=== PATIENT | female | born 1995 | race African-American/Black ===

== ENCOUNTER 2017-06-18 22:23 | Observation (INO) | payer MEDICAID, OTHER ==
[~2017-06-18] VITALS: Ht 167.6 cm; Wt 80.7 kg
[~2017-06-18 22:23] MED LIST: HYDR-519 PO; IBUP-1636 PO
[2017-06-18] MEDS ORDERED: FAMOTIDINE 20MG/2ML VIAL IV STA (23:24)
[2017-06-18] MEDS ORDERED: SODIUM CHLORIDE 0.9% 1,000 ML IV ONE (23:24)
[2017-06-18] MEDS ORDERED: MORPHINE SULFATE 4 MG/ML CPJ (NOT FOR IM USE) IV STA (23:24)
[2017-06-18] MEDS ORDERED: ONDANSETRON HCL 4MG/2ML VIAL IV STA (23:24)
[2017-06-18 23:51] LABS: BASOPHILS % 0.4 % (0.0-2.0); EOSINOPHILS % 0.1 % (0.0-5.0); HEMATOCRIT. 35.6 % (36.0-48.0); HEMOGLOBIN. 11.6 g/dL (12.0-16.0); LYMPHOCYTES % 22.4 % (20.0-50.0); MEAN CORPUSCULAR HEMOGLOBIN 24.2 pg (28.0-32.0); MEAN CORPUSCULAR VOLUME 74.5 fL (81.0-99.0); MEAN PLATELET VOLUME 8.7 fl (7.4-10.4); NEUTROPHILS % 69.1 % (40.0-76.0); PLATELET 362 x1000/uL (130-400); RED BLOOD CELL COUNT 4.77 mill/uL (4.2-5.4); RED CELL DISTRIBUTION WIDTH 17.1 % (11.6-14.6)
[2017-06-18 23:56] LABS: INR 1.1
[2017-06-19 00:05] LABS: CHLORIDE 105 mEq/L (98-107)
[2017-06-19 00:13] LABS: CARBON DIOXIDE 22 mEq/L (21-32)
[2017-06-19 00:26] LABS: CLARITY URINE CLOUDY (CLEAR); COLOR URINE DARK YELLOW (YELLOW); GLUCOSE URINE NEGATIVE (NEGATIVE); KETONES URINE 1+ (NEGATIVE); LEUKOCYTE ESTERASE URINE NEGATIVE (NEGATIVE); NITRITE URINE NEGATIVE (NEGATIVE); OCCULT BLOOD URINE NEGATIVE (NEGATIVE); PROTEIN URINE NEGATIVE (NEGATIVE); SPECIFIC GRAVITY URINE 1.032 (1.005-1.030); UROBILINOGEN URINE 0.2 E.U./dL (0.2-1.0)
[2017-06-19 00:47] LABS: HCG SCREEN NEGATIVE
[2017-06-19] MEDS ORDERED: METRONIDAZOLE 500 MG PREMIX 100 ML IV SCH (02:30)
[2017-06-19] MEDS ORDERED: LEVOFLOXACIN 750MG PREMIX 150 ML IV SCH (02:30)
[2017-06-19] MEDS ORDERED: ONDANSETRON HCL 4MG/2ML VIAL IV ONE (05:30)
[2017-06-19] MEDS ORDERED: CLONIDINE 0.1MG TABLET PO PRN (11:15)
[2017-06-19] MEDS ORDERED: HYDROCODONE/ACETAMINOPHEN 5/325MG TABLET PO PRN (11:15)
[2017-06-19] MEDS ORDERED: ACETAMINOPHEN 325MG TABLET PO PRN (11:15)
[2017-06-19] MEDS ORDERED: ONDANSETRON HCL 4MG/2ML VIAL IV PRN (11:15)
[2017-06-19] MEDS ORDERED: IPRATROPIUM/ALBUTEROL 0.5-3(2.5)MG/3ML NEB INH PRN (11:15)
[2017-06-19] MEDS: ENOXAPARIN 40MG/0.4ML SYR SUBCUT SCH (12:00)
[2017-06-19 12:29] VITALS: BP 128/76
[2017-06-19] MEDS ORDERED: MORPHINE SULFATE 4 MG/ML CPJ (NOT FOR IM USE) IV NR (12:45)
[2017-06-19 13:18] VITALS: BP 136/79
[2017-06-19 13:37] LABS: *AMPHETAMINES SCREEN URINE NEGATIVE (NEGATIVE); *BARBITURATES SCREEN URINE NEGATIVE (NEGATIVE); *BENZODIAZEPINES SCREEN URINE NEGATIVE (NEGATIVE); *COCAINE SCREEN URINE NEGATIVE (NEGATIVE); METHADONE URINE SCREEN NEGATIVE (NEGATIVE); OPIATES URINE SCREEN NEGATIVE (NEGATIVE); PHENCYCLIDINE URINE SCREEN NEGATIVE (NEGATIVE)
[2017-06-19 13:42] LABS: CANNABINOID URINE SCREEN PRESUMTIVE POSITIVE (NEGATIVE)
[2017-06-19] MEDS: PANTOPRAZOLE SODIUM 40 MG/VIAL IV SCH (14:32)
[2017-06-19] MEDS: DEXT 5%/0.45% NACL 1000ML 1,000 ML IV SCH (14:33)
[2017-06-19 17:29] VITALS: BP 118/73
[2017-06-19] MEDS: ONDANSETRON HCL 4MG/2ML VIAL IV PRN (19:27)
[2017-06-19 20:00] VITALS: BP 126/67
[2017-06-19] MEDS: METRONIDAZOLE 500MG TABLET PO SCH ×2 (21:17→21:23)
[2017-06-19] MEDS: MORPHINE SULFATE 4 MG/ML CPJ (NOT FOR IM USE) IV PRN (22:31)
[2017-06-20] VITALS: BP 116/64
[2017-06-20] MEDS: METRONIDAZOLE 500 MG PREMIX 100 ML IV SCH ×3 (00:35→13:42)
[2017-06-20 04:00] VITALS: BP 107/80
[2017-06-20] MEDS: DEXT 5%/0.45% NACL 1000ML 1,000 ML IV SCH (05:19)
[2017-06-20 06:12] LABS: CARBON DIOXIDE 23 mEq/L (21-32); CHLORIDE 107 mEq/L (98-107); HDL CHOLESTEROL 27 mg/dL (40-59); LDL CHOLESTEROL 115 mg/dL (5-100); T4 FREE 1.43 ng/dL (0.76-1.46)
[2017-06-20 06:16] LABS: BASOPHILS % 0.2 % (0.0-2.0); EOSINOPHILS % 0.1 % (0.0-5.0); HEMATOCRIT. 34.1 % (36.0-48.0); HEMOGLOBIN. 11.2 g/dL (12.0-16.0); LYMPHOCYTES % 21.1 % (20.0-50.0); MEAN CORPUSCULAR HEMOGLOBIN 24.4 pg (28.0-32.0); MEAN CORPUSCULAR VOLUME 74.7 fL (81.0-99.0); MONOCYTES % 10.9 % (2.0-8.0); NEUTROPHILS % 67.7 % (40.0-76.0); PLATELET 308 x1000/uL (130-400); RED BLOOD CELL COUNT 4.57 mill/uL (4.2-5.4); RED CELL DISTRIBUTION WIDTH 17.2 % (11.6-14.6)
[2017-06-20 08:00] VITALS: BP 137/65
[2017-06-20] MEDS: ENOXAPARIN 40MG/0.4ML SYR SUBCUT SCH (08:30)
[2017-06-20] MEDS: PANTOPRAZOLE SODIUM 40 MG/VIAL IV SCH (08:30)
[2017-06-20] MEDS: MORPHINE SULFATE 4 MG/ML CPJ (NOT FOR IM USE) IV PRN (10:53)
[2017-06-20] MEDS: ONDANSETRON HCL 4MG/2ML VIAL IV PRN (10:54)
[2017-06-20 12:00] VITALS: BP 108/58
[2017-06-20 14:35] VITALS: BP 108/58
== END 2017-06-20 15:35 | disposition home or self-care (01) ==
LOC: ER 23:11 → INTOOBSV 06-19 02:39 → 8WST 06-19 02:39 → ENRESERV 06-19 09:48
PROVIDERS: ADMIT Internal Medicine; ATTEND Internal Medicine
DX: R10.9 Unspecified abdominal pain (principal); F41.9 Anxiety disorder, unspecified
CPT/HCPCS: 36415; 74176; 76700; 80053; 80061; 80305; 81001; 81025; 83605; 83690; 84439; 84443; 84703; 85025; 85610; 87040; 87086; 87493; 96361; 96365; 96366; 96367; 96372; 96375; 96376; 99285; C9113; G0378; J1650; J1956; J2270; J2405; J3490; J7030

== ENCOUNTER 2017-06-30 15:14 | Inpatient (IN) | payer OTHER ==
[~2017-06-30] VITALS: Ht 167.6 cm; Wt 72.6 kg
[2017-06-30] MEDS ORDERED: MORPHINE SULFATE 4 MG/ML CPJ (NOT FOR IM USE) IV ONE (20:15)
[2017-06-30] MEDS ORDERED: ONDANSETRON HCL 4MG/2ML VIAL IV ONE (20:15)
[2017-06-30] MEDS ORDERED: SODIUM CHLORIDE 0.9% 1,000 ML IV ONE (20:15)
[2017-06-30 20:30] LABS: CLARITY URINE CLEAR (CLEAR); COLOR URINE YELLOW (YELLOW); GLUCOSE URINE NEGATIVE (NEGATIVE); KETONES URINE NEGATIVE (NEGATIVE); LEUKOCYTE ESTERASE URINE NEGATIVE (NEGATIVE); NITRITE URINE NEGATIVE (NEGATIVE); OCCULT BLOOD URINE NEGATIVE (NEGATIVE); PROTEIN URINE TRACE (NEGATIVE); SPECIFIC GRAVITY URINE 1.021 (1.005-1.030); UROBILINOGEN URINE 0.2 E.U./dL (0.2-1.0)
[2017-06-30] MEDS ORDERED: LEVOFLOXACIN 500MG PREMIX 100 ML IV ONE (20:45)
[2017-06-30] MEDS ORDERED: METRONIDAZOLE 500 MG PREMIX 100 ML IV ONE (20:45)
[2017-06-30 20:46] LABS: BASOPHILS % 0.4 % (0.0-2.0); EOSINOPHILS % 0.5 % (0.0-5.0); HEMATOCRIT. 38.4 % (36.0-48.0); HEMOGLOBIN. 12.5 g/dL (12.0-16.0); LYMPHOCYTES % 43.1 % (20.0-50.0); MEAN CORPUSCULAR HEMOGLOBIN 23.8 pg (28.0-32.0); MEAN PLATELET VOLUME 8.4 fl (7.4-10.4); MONOCYTES % 11.9 % (2.0-8.0); NEUTROPHILS % 44.1 % (40.0-76.0); PLATELET 432 x1000/uL (130-400); RED BLOOD CELL COUNT 5.27 mill/uL (4.2-5.4); RED CELL DISTRIBUTION WIDTH 16.2 % (11.6-14.6)
[2017-06-30 21:00] LABS: CARBON DIOXIDE 26 mEq/L (21-32); CHLORIDE 104 mEq/L (98-107)
[2017-06-30 21:07] LABS: HCG SCREEN NEGATIVE
[2017-07-01 06:00] VITALS: BP 113/64
[2017-07-01] MEDS ORDERED: IOHEXOL-300 100 ML BOTTLE ONE (06:00)
[2017-07-01] MEDS ORDERED: SODIUM CHLORIDE 0.9% 10ML VIAL ONE (06:00)
[2017-07-01 08:00] VITALS: BP 114/68
[2017-07-01] MEDS ORDERED: MORPHINE SULFATE 4 MG/ML CPJ (NOT FOR IM USE) IV PRN (08:00)
[2017-07-01] MEDS ORDERED: DEXT 5%/0.45% NACL KCL 20MEQ/L 1,000 ML IV SCH (09:00)
[2017-07-01 12:00] VITALS: BP 122/69
[2017-07-01] MEDS ORDERED: VANCOMYCIN HCL 1 GM/VIAL PO SCH (12:00)
[2017-07-01] MEDS: VANCOMYCIN HCL 1000 MG/20 ML ORAL PO SCH ×3 (12:00→18:00)
[2017-07-01 15:54] VITALS: BP_SYST 110; BP_SYST 122; BP_DIAS 66; BP_DIAS 69
[2017-07-01 16:00] VITALS: BP 115/64
[2017-07-01 20:00] VITALS: BP 110/66
== END 2017-07-02 00:15 | disposition short-term general hospital (02) | DRG 248 ==
LOC: ER 15:14 → CANBEDREQ 07-01 01:38 → 6EST 07-01 03:05 → EDBEDREQ 07-01 03:27 → ENRESERV 07-01 03:57
PROVIDERS: ADMIT Internal Medicine; ATTEND Internal Medicine
DX: A04.71 Enterocolitis due to Clostridium difficile, recurrent (principal); F12.90 Cannabis use, unspecified, uncomplicated
CPT/HCPCS: 36415; 71010; 74177; 80053; 81001; 84703; 85025; 93005; 96361; 96365; 96366; 96368; 96375; 99285; A4216; J1956; J2270; J2405; J3370; J3490; J7030; Q9967

== ENCOUNTER 2017-12-01 09:23 | Emergency (ER) | payer OTHER ==
[~2017-12-01] VITALS: Ht 162.6 cm; Wt 84.0 kg
[2017-12-01] MEDS ORDERED: SODIUM CHLORIDE 0.9% 1,000 ML IV ONE (11:45)
[2017-12-01] MEDS ORDERED: ONDANSETRON HCL 4MG/2ML VIAL IV ONE (11:45)
[2017-12-01] MEDS ORDERED: METOCLOPRAMIDE HCL 10MG/2ML VIAL IV ONE (12:00)
[2017-12-01 12:15] LABS: BASOPHILS % 0.3 % (0.0-2.0); EOSINOPHILS % 0.6 % (0.0-5.0); HEMATOCRIT. 34.7 % (36.0-48.0); HEMOGLOBIN. 11.6 g/dL (12.0-16.0); LYMPHOCYTES % 31.6 % (20.0-50.0); MEAN CORPUSCULAR HEMOGLOBIN 26.4 pg (28.0-32.0); MEAN CORPUSCULAR VOLUME 78.9 fL (81.0-99.0); MEAN PLATELET VOLUME 8.4 fl (7.4-10.4); NEUTROPHILS % 61.5 % (40.0-76.0); PLATELET 347 x1000/uL (130-400); RED CELL DISTRIBUTION WIDTH 15.8 % (11.6-14.6)
[2017-12-01 12:20] LABS: CHLORIDE 103 mEq/L (98-107)
[2017-12-01 12:21] LABS: CLARITY URINE CLOUDY (CLEAR); COLOR URINE YELLOW (YELLOW); KETONES URINE 3+ (NEGATIVE); LEUKOCYTE ESTERASE URINE TRACE (NEGATIVE); NITRITE URINE NEGATIVE (NEGATIVE); OCCULT BLOOD URINE NEGATIVE (NEGATIVE); PH URINE 8.5 (4.5-8.0); PROTEIN URINE 1+ (NEGATIVE)
[2017-12-01 12:23] LABS: INR 1.1; PROTHROMBIN TIME 11.5 sec (9.4-11.6)
[2017-12-01 12:30] VITALS: BP 122/78
== END 2017-12-01 14:22 | disposition home or self-care (01) ==
LOC: ER 09:37
DX: O26.891 Other specified pregnancy related conditions, first trimester (principal); O23.41 Unspecified infection of urinary tract in pregnancy, first trimester; K92.0 Hematemesis; O99.341 Other mental disorders complicating pregnancy, first trimester; F41.9 Anxiety disorder, unspecified; Z3A.01 Less than 8 weeks gestation of pregnancy; Z88.6 Allergy status to analgesic agent
CPT/HCPCS: 36415; 76801; 76817; 80053; 81003; 83690; 84702; 85025; 85610; 87077; 87086; 96361; 96374; 99285; J2405; J7030; Z7610; J2765

== ENCOUNTER 2017-12-07 20:50 | Emergency (ER) | payer OTHER ==
[~2017-12-07] VITALS: Ht 165.1 cm; Wt 83.0 kg
[2017-12-07] MEDS ORDERED: ONDANSETRON 4MG ODT PO STA (22:57)
[2017-12-07] MEDS ORDERED: ACETAMINOPHEN 325MG TABLET PO STA (22:57)
[2017-12-08 05:27] VITALS: BP 124/68
== END 2017-12-08 04:20 | disposition home or self-care (01) ==
LOC: ER 20:50
DX: O21.0 Mild hyperemesis gravidarum (principal); O26.91 Pregnancy related conditions, unspecified, first trimester; Z3A.09 9 weeks gestation of pregnancy
CPT/HCPCS: 87804; 99284; Q0162

== ENCOUNTER 2017-12-17 15:58 | Emergency (ER) | payer OTHER ==
[~2017-12-17] VITALS: Ht 175.3 cm; Wt 89.0 kg
[2017-12-17 17:51] LABS: BASOPHILS % 0.4 % (0.0-2.0); EOSINOPHILS % 0.4 % (0.0-5.0); HEMATOCRIT. 38.5 % (36.0-48.0); HEMOGLOBIN. 13.5 g/dL (12.0-16.0); LYMPHOCYTES % 30.6 % (20.0-50.0); MEAN CORPUSCULAR VOLUME 77.1 fL (81.0-99.0); MEAN PLATELET VOLUME 8.9 fl (7.4-10.4); MONOCYTES % 9.8 % (2.0-8.0); NEUTROPHILS % 58.8 % (40.0-76.0); PLATELET 393 x1000/uL (130-400); RED BLOOD CELL COUNT 4.99 mill/uL (4.2-5.4); RED CELL DISTRIBUTION WIDTH 15.9 % (11.6-14.6)
[2017-12-17 17:52] LABS: CHLORIDE 100 mEq/L (98-107)
[2017-12-17 17:55] LABS: INR 1.2; PROTHROMBIN TIME 12.4 sec (9.4-11.6)
[2017-12-17] MEDS ORDERED: SODIUM CHLORIDE 0.9% 1,000 ML IV ONE (18:12)
[2017-12-17] MEDS ORDERED: FAMOTIDINE 20MG/2ML VIAL IV ONE (18:15)
[2017-12-17] MEDS ORDERED: ONDANSETRON HCL 4MG/2ML VIAL IV ONE ×2 (18:15→22:45)
[2017-12-17 18:16] LABS: B-HCG QUANTITATIVE 94077 mIU/mL (<3)
[2017-12-17] MEDS ORDERED: POTASSIUM CHLORIDE 20MEQ TABLET SR PO ONE (19:15)
[2017-12-17 23:03] LABS: CLARITY URINE CLOUDY (CLEAR); COLOR URINE DARK YELLOW (YELLOW); KETONES URINE 4+ (NEGATIVE); LEUKOCYTE ESTERASE URINE 1+ (NEGATIVE); NITRITE URINE NEGATIVE (NEGATIVE); OCCULT BLOOD URINE NEGATIVE (NEGATIVE); PH URINE 5.5 (4.5-8.0); PROTEIN URINE 1+ (NEGATIVE); SPECIFIC GRAVITY URINE 1.031 (1.005-1.030)
[2017-12-17 23:30] VITALS: BP 112/62
== END 2017-12-18 02:34 | disposition home or self-care (01) ==
LOC: ER 15:58
DX: O21.1 Hyperemesis gravidarum with metabolic disturbance (principal); O23.42 Unspecified infection of urinary tract in pregnancy, second trimester; O26.892 Other specified pregnancy related conditions, second trimester; E87.6 Hypokalemia; E86.0 Dehydration; Z3A.10 10 weeks gestation of pregnancy; Z88.6 Allergy status to analgesic agent
CPT/HCPCS: 36415; 76801; 80053; 81003; 81025; 83880; 84702; 85025; 85610; 85730; 86850; 86870; 86900; 86901; 96361; 96374; 96375; 99285; J2405; J3490; J7030

== ENCOUNTER 2017-12-30 10:36 | Emergency (ER) | payer OTHER ==
[~2017-12-30] VITALS: Ht 167.6 cm; Wt 82.0 kg
[2017-12-30 11:23] LABS: BASOPHILS % 0.7 % (0.0-2.0); EOSINOPHILS % 0.4 % (0.0-5.0); HEMATOCRIT. 38.2 % (36.0-48.0); HEMOGLOBIN. 13.1 g/dL (12.0-16.0); LYMPHOCYTES % 27.3 % (20.0-50.0); MEAN CORPUSCULAR HEMOGLOBIN 26.8 pg (28.0-32.0); MEAN PLATELET VOLUME 8.8 fl (7.4-10.4); MONOCYTES % 7.3 % (2.0-8.0); NEUTROPHILS % 64.3 % (40.0-76.0); PLATELET 341 x1000/uL (130-400); RED CELL DISTRIBUTION WIDTH 15.8 % (11.6-14.6)
[2017-12-30 11:29] LABS: CHLORIDE 95 mEq/L (98-107)
[2017-12-30 11:32] LABS: INR 1.1; PROTHROMBIN TIME 11.7 sec (9.4-11.6)
[2017-12-30 11:54] LABS: B-HCG QUANTITATIVE 77649 mIU/mL (<3)
[2017-12-30] MEDS ORDERED: SODIUM CHLORIDE 0.9% 1,000 ML IV ONE ×2 (12:13→12:15)
[2017-12-30] MEDS ORDERED: ONDANSETRON HCL 4MG/2ML VIAL IV ONE (12:15)
[2017-12-30] MEDS ORDERED: FAMOTIDINE 20MG/2ML VIAL IV ONE (12:15)
[2017-12-30 12:54] LABS: CHLORIDE 99 mEq/L (98-107)
[2017-12-30] MEDS ORDERED: METOCLOPRAMIDE HCL 10MG/2ML VIAL IV ONE (13:00)
[2017-12-30] MEDS ORDERED: POTASSIUM CHLORIDE 20MEQ TABLET SR PO ONE ×2 (13:00→15:30)
[2017-12-30 15:36] VITALS: BP 100/61
== END 2017-12-30 15:40 | disposition home or self-care (01) ==
LOC: ER 10:55
DX: O26.891 Other specified pregnancy related conditions, first trimester (principal); Z3A.11 11 weeks gestation of pregnancy; O23.41 Unspecified infection of urinary tract in pregnancy, first trimester; O99.281 Endocrine, nutritional and metabolic diseases complicating pregnancy, first trimester; O21.0 Mild hyperemesis gravidarum; E86.0 Dehydration; Z88.8 Allergy status to other drugs, medicaments and biological substances
CPT/HCPCS: 36415; 76801; 76817; 80053; 83605; 83690; 84702; 85025; 85610; 87040; 96361; 96374; 96375; 99285; J2405; J2765; J3490; J7030

== ENCOUNTER 2018-05-18 09:42 | Emergency (ER) | payer OTHER ==
[~2018-05-18] VITALS: Ht 167.6 cm; Wt 73.0 kg
[2018-05-18] MEDS ORDERED: MORPHINE SULFATE 4 MG/ML CPJ (NOT FOR IM USE) IV STA (11:08)
[2018-05-18] MEDS ORDERED: ONDANSETRON HCL 4MG/2ML INJ IV STA (11:08)
[2018-05-18] MEDS ORDERED: SODIUM CHLORIDE 0.9% 1,000 ML IV ONE (11:08)
[2018-05-18] MEDS ORDERED: ACETAMINOPHEN 325MG TABLET PO ONE (12:30)
[2018-05-18 12:47] LABS: BASOPHILS % 0.2 % (0.0-2.0); EOSINOPHILS % 0.1 % (0.0-5.0); HEMATOCRIT. 31.7 % (36.0-48.0); HEMOGLOBIN. 10.7 g/dL (12.0-16.0); LYMPHOCYTES % 16.5 % (20.0-50.0); MEAN CORPUSCULAR HEMOGLOBIN 29.2 pg (28.0-32.0); MEAN CORPUSCULAR VOLUME 86.9 fL (81.0-99.0); MEAN PLATELET VOLUME 9.8 fl (7.4-10.4); MONOCYTES % 6.4 % (2.0-8.0); NEUTROPHILS % 76.8 % (40.0-76.0); PLATELET 257 x1000/uL (130-400); RED BLOOD CELL COUNT 3.65 mill/uL (4.2-5.4); RED CELL DISTRIBUTION WIDTH 14.3 % (11.6-14.6)
[2018-05-18 12:49] LABS: CHLORIDE 108 mEq/L (98-107)
[2018-05-18 12:51] LABS: PROTHROMBIN TIME 9.7 sec (9.1-11.1)
[2018-05-18] MEDS ORDERED: MORPHINE SULFATE 4 MG/ML CPJ (NOT FOR IM USE) IV ONE ×2 (15:15→16:30)
[2018-05-18] MEDS ORDERED: LIDOCAINE 1%/EPI 1:100,000 10 ML VIAL IJ ONE (15:30)
[2018-05-18] MEDS ORDERED: ONDANSETRON HCL 4MG/2ML INJ IV ONE (15:30)
[2018-05-18] MEDS ORDERED: LIDOCAINE HCL/EPINEPHRINE 1%-EPI 1:100,000 50 ML VIAL INFIL ONE (15:45)
[2018-05-18] MEDS ORDERED: AMPICILLIN 1000MG in SODIUM CHLORIDE 0.9% 50ML IV NR (16:30)
[2018-05-18 18:19] VITALS: BP 138/86
== END 2018-05-18 18:59 | disposition home or self-care (01) ==
LOC: ER 11:09 → CANBEDREQ 16:54 → ER 18:59
DX: O26.893 Other specified pregnancy related conditions, third trimester (principal); K04.7 Periapical abscess without sinus; R22.0 Localized swelling, mass and lump, head; R51 Headache; R07.9 Chest pain, unspecified; Z3A.00 Weeks of gestation of pregnancy not specified; Z88.6 Allergy status to analgesic agent
CPT/HCPCS: 36415; 41800; 70540; 80053; 83605; 85025; 85610; 87040; 93005; 96365; 96375; 96376; 99285; J0290; J2270; J2405; J3490; J7030; Z7610

== ENCOUNTER 2018-12-01 14:36 | Inpatient (IN) | payer OTHER ==
[~2018-12-01] VITALS: Ht 170.2 cm; Wt 74.8 kg
[2018-12-01] MEDS ORDERED: SODIUM CHLORIDE 0.9% 1,000 ML IV ONE (23:05)
[2018-12-01] MEDS ORDERED: ONDANSETRON HCL 4MG/2ML INJ IV ONE (23:15)
[2018-12-01 23:27] LABS: BASOPHILS % 0.6 % (0.0-2.0); EOSINOPHILS % 0.1 % (0.0-5.0); HEMATOCRIT. 38.8 % (36.0-48.0); MEAN CORPUSCULAR HEMOGLOBIN 27.7 pg (28.0-32.0); MEAN CORPUSCULAR VOLUME 82.7 fL (81.0-99.0); MONOCYTES % 7.4 % (2.0-8.0); NEUTROPHILS % 69.9 % (40.0-76.0); PLATELET 353 x1000/uL (130-400); RED BLOOD CELL COUNT 4.69 mill/uL (4.2-5.4); RED CELL DISTRIBUTION WIDTH 14.2 % (11.6-14.6)
[2018-12-01 23:32] LABS: INR 1.1; PROTHROMBIN TIME 10.7 sec (9.1-11.1)
[2018-12-01 23:34] LABS: CHLORIDE 104 mEq/L (98-107)
[2018-12-01 23:58] LABS: B-HCG QUANTITATIVE 56489 mIU/mL (<3)
[2018-12-02 00:15] LABS: CLARITY URINE CLOUDY (CLEAR); COLOR URINE YELLOW (YELLOW); KETONES URINE 1+ (NEGATIVE); LEUKOCYTE ESTERASE URINE NEGATIVE (NEGATIVE); NITRITE URINE NEGATIVE (NEGATIVE); OCCULT BLOOD URINE NEGATIVE (NEGATIVE); PH URINE 6.5 (4.5-8.0); PROTEIN URINE 1+ (NEGATIVE); SPECIFIC GRAVITY URINE 1.028 (1.005-1.030)
[2018-12-02] MEDS ORDERED: SODIUM CHLORIDE 0.9% 1,000 ML IV ONE (00:51)
[2018-12-02 01:00] VITALS: BP 129/87
[2018-12-02] MEDS ORDERED: ONDANSETRON HCL 4MG/2ML INJ IV ONE (01:00)
[2018-12-02] MEDS ORDERED: DIPHENHYDRAMINE 50MG/ML VIAL IV ONE (04:15)
[2018-12-02] MEDS ORDERED: ACETAMINOPHEN 325MG TABLET PO PRN ×2 (05:00→12:15)
[2018-12-02 09:25] VITALS: BP 122/70
[2018-12-02 09:48] VITALS: BP 122/70
[2018-12-02] MEDS ORDERED: IPRATROPIUM/ALBUTEROL 0.5-3(2.5)MG/3ML NEB INH PRN (12:15)
[2018-12-02] MEDS: DEXT 5%/0.45% NACL 1000ML 1,000 ML IV SCH (13:28)
[2018-12-02 15:07] LABS: *AMPHETAMINES SCREEN URINE NEGATIVE (NEGATIVE); *BARBITURATES SCREEN URINE NEGATIVE (NEGATIVE)
[2018-12-02 15:08] LABS: *BENZODIAZEPINES SCREEN URINE NEGATIVE (NEGATIVE); *COCAINE SCREEN URINE NEGATIVE (NEGATIVE); METHADONE URINE SCREEN NEGATIVE (NEGATIVE); OPIATES URINE SCREEN NEGATIVE (NEGATIVE); PHENCYCLIDINE URINE SCREEN NEGATIVE (NEGATIVE)
[2018-12-02 15:14] LABS: CANNABINOID URINE SCREEN PRESUMTIVE POSITIVE (NEGATIVE)
[2018-12-02 15:17] LABS: CHLORIDE 106 mEq/L (98-107)
[2018-12-02 15:23] LABS: HEMATOCRIT 33.6 % (36.0-48.0); HEMOGLOBIN 11.4 g/dL (12.0-16.0); MEAN CORPUSCULAR HEMOGLOBIN 28.4 pg (28.0-32.0); MEAN CORPUSCULAR VOLUME 83.5 fL (81.0-99.0); PLATELET 277 x1000/uL (130-400); RED BLOOD CELL COUNT 4.02 mill/uL (4.2-5.4); RED CELL DISTRIBUTION WIDTH 14.2 % (11.6-14.6)
[2018-12-02] MEDS ORDERED: ONDANSETRON HCL 4MG/2ML INJ IV NR (15:30)
[2018-12-02 16:00] VITALS: BP 129/87
[2018-12-02] MEDS ORDERED: POTASSIUM CHLORIDE 20MEQ TABLET SR PO NR (16:15)
[2018-12-02] MEDS ORDERED: ONDANSETRON HCL 4MG/2ML INJ IV PRN (16:15)
[2018-12-02] MEDS: CEPHALEXIN 250MG CAPSULE PO SCH (18:22)
[2018-12-02 20:00] VITALS: BP 121/73
[2018-12-02] MEDS ORDERED: ONDANSETRON HCL 4MG/2ML INJ IV SCH (20:00)
[2018-12-02] MEDS: FAMOTIDINE 20MG/2ML VIAL IV SCH (21:06)
[2018-12-02] MEDS: ONDANSETRON HCL 4MG/2ML INJ IV PRN (21:07)
[2018-12-03] VITALS: BP 103/55
[2018-12-03 04:00] VITALS: BP 115/66
[2018-12-03] MEDS: CEPHALEXIN 250MG CAPSULE PO SCH ×4 (06:00→17:43)
[2018-12-03 07:21] LABS: CHLORIDE 107 mEq/L (98-107)
[2018-12-03 07:29] LABS: LDL CHOLESTEROL 97 mg/dL (5-100)
[2018-12-03 07:30] LABS: BASOPHILS % 0.4 % (0.0-2.0); EOSINOPHILS % 0.8 % (0.0-5.0); HEMATOCRIT. 33.3 % (36.0-48.0); HEMOGLOBIN. 11.3 g/dL (12.0-16.0); LYMPHOCYTES % 39.6 % (20.0-50.0); MEAN CORPUSCULAR HEMOGLOBIN 28.3 pg (28.0-32.0); MEAN CORPUSCULAR VOLUME 83.4 fL (81.0-99.0); MEAN PLATELET VOLUME 9.5 fl (7.4-10.4); MONOCYTES % 8.9 % (2.0-8.0); NEUTROPHILS % 50.3 % (40.0-76.0); PLATELET 267 x1000/uL (130-400); T4 FREE 1.69 ng/dL (0.76-1.46)
[2018-12-03 07:31] LABS: HDL CHOLESTEROL 34 mg/dL (40-59)
[2018-12-03] MEDS: DEXT 5%/0.45% NACL 1000ML 1,000 ML IV SCH (07:39)
[2018-12-03] MEDS: FAMOTIDINE 20MG/2ML VIAL IV SCH ×3 (10:08→22:55)
[2018-12-03] MEDS: POTASSIUM CHLORIDE 20MEQ TABLET SR PO SCH ×2 (11:30→13:04)
[2018-12-03] MEDS: ONDANSETRON HCL 4MG/2ML INJ IV PRN ×2 (11:41→17:43)
[2018-12-03 12:00] VITALS: BP 120/76
[2018-12-03 16:00] VITALS: BP 126/75
[2018-12-03 20:00] VITALS: BP 119/70
[2018-12-03] MEDS: DIPHENHYDRAMINE 50MG/ML VIAL IV NR (23:02)
[2018-12-04] MEDS: CEPHALEXIN 250MG CAPSULE PO SCH
[2018-12-04] MEDS: DIPHENHYDRAMINE 50MG/ML VIAL IV NR (00:40)
== END 2018-12-04 | disposition left against medical advice (07) | DRG 566 ==
LOC: ER 14:36 → 6EST 12-02 04:39 → EDBEDREQ 12-02 04:46 → EDBEDREQTM 12-02 04:46 → ENRESERV 12-02 07:55
PROVIDERS: ADMIT Internal Medicine; ATTEND Internal Medicine
PROC: 3E0234Z Introduction of Serum, Toxoid and Vaccine into Muscle, Percutaneous Approach (ICD-10-PCS; principal; 2018-12-02)
DX: O21.1 Hyperemesis gravidarum with metabolic disturbance (principal); O23.41 Unspecified infection of urinary tract in pregnancy, first trimester; Z3A.01 Less than 8 weeks gestation of pregnancy; Z88.6 Allergy status to analgesic agent; Z82.49 Family history of ischemic heart disease and other diseases of the circulatory system
CPT/HCPCS: 36415; 76801; 80048; 80061; 80305; 84439; 84443; 84702; 85027; 86850; 86900; 90384; 93970; 96361; 96374; 99285; J1200; J2405; J3490; J7030

== ENCOUNTER 2020-06-05 08:11 | Emergency (ER) | payer OTHER ==
[~2020-06-05] VITALS: Ht 170.2 cm; Wt 84.0 kg
[2020-06-05] MEDS ORDERED: KETOROLAC 60MG/2ML VIAL IM STA (08:45)
[2020-06-05 09:01] LABS: CLARITY URINE CLOUDY (CLEAR); COLOR URINE YELLOW (YELLOW); KETONES URINE NEGATIVE (NEGATIVE); LEUKOCYTE ESTERASE URINE TRACE (NEGATIVE); NITRITE URINE NEGATIVE (NEGATIVE); OCCULT BLOOD URINE NEGATIVE (NEGATIVE); PROTEIN URINE NEGATIVE (NEGATIVE); SPECIFIC GRAVITY URINE 1.029 (1.005-1.030); UROBILINOGEN URINE 0.2 E.U./dL (0.2-1.0)
[2020-06-05 09:20] VITALS: BP 128/69
== END 2020-06-05 10:21 | disposition home or self-care (01) ==
LOC: ER 08:11
DX: M54.6 Pain in thoracic spine (principal); N39.0 Urinary tract infection, site not specified; Z88.6 Allergy status to analgesic agent
CPT/HCPCS: 71045; 81003; 81025; 96372; 99284; J1885

== ENCOUNTER 2021-05-02 09:41 | Emergency (ER) | payer OTHER ==
[~2021-05-02] VITALS: Ht 170.2 cm; Wt 82.0 kg
[2021-05-02 12:11] LABS: CLARITY URINE CLEAR (CLEAR); COLOR URINE YELLOW (YELLOW); KETONES URINE NEGATIVE (NEGATIVE); LEUKOCYTE ESTERASE URINE NEGATIVE (NEGATIVE); NITRITE URINE NEGATIVE (NEGATIVE); OCCULT BLOOD URINE NEGATIVE (NEGATIVE); PH URINE 5.5 (4.5-8.0); PROTEIN URINE NEGATIVE (NEGATIVE); SPECIFIC GRAVITY URINE 1.033 (1.005-1.030)
[2021-05-02] MEDS ORDERED: LIDOCAINE HCL 1% 20ML VIAL (Pyxis) INJ INFIL ONE (12:30)
[2021-05-02] MEDS ORDERED: CEFTRIAXONE SODIUM 500 MG/VIAL IM ONE (12:30)
[2021-05-02] MEDS ORDERED: METR-167 PO (13:18)
[2021-05-02] MEDS ORDERED: DOXY100T28 MT (13:18)
[2021-05-02] MEDS ORDERED: ACET-2708 PO (13:18)
[2021-05-02 13:40] VITALS: BP 122/55
[2021-05-04 04:08] LABS: NEISSERIA GONORRHOEAE NAA Negative (Negative)
== END 2021-05-02 13:40 | disposition home or self-care (01) ==
LOC: ER 09:41
DX: N76.0 Acute vaginitis (principal)
CPT/HCPCS: 81003; 81025; 87210; 87491; 87591; 96372; 99283; J0696; J3490

== ENCOUNTER 2021-11-03 07:27 | Emergency (ER) | payer OTHER ==
[~2021-11-03] VITALS: Ht 167.6 cm; Wt 86.0 kg
[~2021-11-03 07:27] MED LIST changes: +ACET-2708 PO; +DOXY100T28 MT; -HYDR-519 PO; -IBUP-1636 PO; +METR-167 PO
[2021-11-03 07:45] VITALS: BP 114/50
[2021-11-03] MEDS ORDERED: KETOROLAC 60MG/2ML VIAL IM ONE (07:45)
[2021-11-03] MEDS ORDERED: IBUP-2030 MT (08:38)
== END 2021-11-03 09:20 | disposition home or self-care (01) ==
LOC: ER 07:27
DX: S40.022A Contusion of left upper arm, initial encounter (principal); S09.90XA Unspecified injury of head, initial encounter; Z88.5 Allergy status to narcotic agent; Y04.0XXA Assault by unarmed brawl or fight, initial encounter; Y93.89 Activity, other specified; Y92.89 Other specified places as the place of occurrence of the external cause; Y99.8 Other external cause status
CPT/HCPCS: 70450; 72125; 73090; 81025; 96372; 99284; J1885

== ENCOUNTER 2022-04-09 10:20 | Emergency (ER) | payer OTHER ==
[~2022-04-09] VITALS: Ht 167.6 cm; Wt 94.0 kg
[~2022-04-09 10:20] MED LIST changes: +IBUP-2030 MT
[2022-04-09 10:26] VITALS: BP 120/71
[2022-04-09] MEDS ORDERED: ACETAMINOPHEN 325MG TABLET PO STA (11:42)
[2022-04-09] MEDS ORDERED: SODIUM CHLORIDE 0.9% 1,000 ML IV ONE (11:45)
[2022-04-09] MEDS ORDERED: ALBUTEROL 6.7GM HFA INHALER ORI ONE (11:45)
[2022-04-09] MEDS ORDERED: MAGNESIUM/ALUMINUM HYDROXIDE/SIMETHICONE 30ML UDC PO ONE (12:15)
[2022-04-09] MEDS ORDERED: PANTOPRAZOLE SODIUM 40 MG/VIAL IV ONE (12:15)
[2022-04-09 12:22] LABS: BASOPHILS % 0.8 % (0.0-2.0); EOSINOPHILS % 1.6 % (0.0-5.0); HEMATOCRIT. 39.4 % (36.0-48.0); HEMOGLOBIN. 13.1 g/dL (12.0-16.0); LYMPHOCYTES % 37.7 % (20.0-50.0); MEAN CORPUSCULAR HEMOGLOBIN 28.1 pg (28.0-32.0); MEAN CORPUSCULAR VOLUME 84.3 fL (81.0-99.0); MEAN PLATELET VOLUME 9.1 fl (7.4-10.4); MONOCYTES % 5.6 % (2.0-8.0); NEUTROPHILS % 54.3 % (40.0-76.0); PLATELET 276 x1000/uL (130-400); RED BLOOD CELL COUNT 4.67 mill/uL (4.2-5.4); RED CELL DISTRIBUTION WIDTH 14.7 % (11.6-14.6)
[2022-04-09 12:32] LABS: CHLORIDE 108 mEq/L (98-107)
[2022-04-09 12:37] LABS: HCG SCREEN NEGATIVE
[2022-04-09 12:38] LABS: ETHANOL BLOOD < 10 mg/dL
[2022-04-09 12:59] LABS: CLARITY URINE CLOUDY (CLEAR); COLOR URINE YELLOW (YELLOW); KETONES URINE NEGATIVE (NEGATIVE); LEUKOCYTE ESTERASE URINE 1+ (NEGATIVE); NITRITE URINE NEGATIVE (NEGATIVE); OCCULT BLOOD URINE TRACE (NEGATIVE); PH URINE 5.5 (4.5-8.0); PROTEIN URINE NEGATIVE (NEGATIVE); UROBILINOGEN URINE 0.2 E.U./dL (0.2-1.0)
[2022-04-09] MEDS ORDERED: MAG355OR21 MT (14:11)
[2022-04-09] MEDS ORDERED: ONDA4TAB50 MT (14:11)
[2022-04-09] MEDS ORDERED: CEPH500C2 MT (14:11)
[2022-04-09 14:14] LABS: *AMPHETAMINES SCREEN URINE NEGATIVE (NEGATIVE); *BARBITURATES SCREEN URINE NEGATIVE (NEGATIVE); *BENZODIAZEPINES SCREEN URINE NEGATIVE (NEGATIVE); METHADONE URINE SCREEN NEGATIVE (NEGATIVE); OPIATES URINE SCREEN NEGATIVE (NEGATIVE); PHENCYCLIDINE URINE SCREEN NEGATIVE (NEGATIVE)
[2022-04-09] MEDS ORDERED: CEPHALEXIN 250MG CAPSULE PO NR (14:15)
[2022-04-09 14:18] LABS: *COCAINE SCREEN URINE PRESUMTIVE POSITIVE (NEGATIVE); CANNABINOID URINE SCREEN PRESUMTIVE POSITIVE (NEGATIVE)
== END 2022-04-09 14:29 | disposition home or self-care (01) ==
LOC: ER 10:20
DX: N39.0 Urinary tract infection, site not specified (principal); B34.9 Viral infection, unspecified; R11.2 Nausea with vomiting, unspecified; F41.9 Anxiety disorder, unspecified; J45.909 Unspecified asthma, uncomplicated; F12.10 Cannabis abuse, uncomplicated; F17.210 Nicotine dependence, cigarettes, uncomplicated; Z20.822 Contact with and (suspected) exposure to COVID-19
CPT/HCPCS: 36415; 71045; 80053; 80305; 80320; 81003; 83690; 84703; 85025; 87426; 96361; 96374; 99284; C9113; C9803; J7030; Z7610; G0480

== ENCOUNTER 2022-07-24 09:04 | Emergency (ER) | payer MEDICAID, OTHER ==
[~2022-07-24] VITALS: Ht 167.6 cm; Wt 96.0 kg
[~2022-07-24 09:04] MED LIST changes: +CEPH500C2 MT; +MAG355OR21 MT; +ONDA4TAB50 MT
[2022-07-24 09:11] VITALS: BP 136/67
[2022-07-24 12:00] LABS: CLARITY URINE CLEAR (CLEAR); COLOR URINE YELLOW (YELLOW); KETONES URINE NEGATIVE (NEGATIVE); LEUKOCYTE ESTERASE URINE TRACE (NEGATIVE); NITRITE URINE NEGATIVE (NEGATIVE); OCCULT BLOOD URINE NEGATIVE (NEGATIVE); PH URINE 6.5 (4.5-8.0); PROTEIN URINE NEGATIVE (NEGATIVE); SPECIFIC GRAVITY URINE 1.021 (1.005-1.030); UROBILINOGEN URINE 0.2 E.U./dL (0.2-1.0)
[2022-07-24 13:17] LABS: BASOPHILS % 0.9 % (0.0-2.0); EOSINOPHILS % 1.2 % (0.0-5.0); HEMATOCRIT. 41.8 % (36.0-48.0); HEMOGLOBIN. 14.3 g/dL (12.0-16.0); LYMPHOCYTES % 37.8 % (20.0-50.0); MEAN CORPUSCULAR HEMOGLOBIN 28.7 pg (28.0-32.0); MEAN CORPUSCULAR VOLUME 83.7 fL (81.0-99.0); MEAN PLATELET VOLUME 8.8 fl (7.4-10.4); MONOCYTES % 8.1 % (2.0-8.0); PLATELET 365 x1000/uL (130-400); RED BLOOD CELL COUNT 4.99 mill/uL (4.2-5.4); RED CELL DISTRIBUTION WIDTH 14.3 % (11.6-14.6)
[2022-07-24 13:21] LABS: CHLORIDE 101 mEq/L (98-107)
[2022-07-24] MEDS ORDERED: NITR100C MT (16:35)
[2022-07-24] MEDS ORDERED: ACET-2708 MT (16:36)
== END 2022-07-24 16:51 | disposition home or self-care (01) ==
LOC: ER 09:44
DX: N39.0 Urinary tract infection, site not specified (principal); F12.10 Cannabis abuse, uncomplicated; I10 Essential (primary) hypertension; Z88.8 Allergy status to other drugs, medicaments and biological substances; Z79.899 Other long term (current) drug therapy
CPT/HCPCS: 36415; 74176; 80053; 81003; 81025; 85025; 99284